=== PATIENT | female | born 1980 | race Caucasian/White ===

== ENCOUNTER 2019-06-12 15:00 | Emergency (ER) | payer MEDICAID, OTHER ==
[~2019-06-12] VITALS: Ht 162.6 cm; Wt 63.5 kg
[~2019-06-12 15:00] MED LIST: ALPR0.25 PO; AMOX-426 PO; L.RH1CAP PO; LEVE500T53 PO; TRAM50TA2 PO
[2019-06-12 15:05] VITALS: BP_SYST 143
[2019-06-12] MEDS ORDERED: ACETAMINOPHEN 500 MG TABLET PO ONE (15:30)
[2019-06-12 17:04] LABS: BARBITURATE, URINE NEGATIVE (NEG <=200)
[2019-06-12 17:05] LABS: BENZODIAZEPINE, URINE NEGATIVE (NEG <=150); CANNABINOID, URINE POSITIVE (NEG <=50); COCAINE, URINE NEGATIVE (NEG <=150); METHAMPHETAMINES SCREEN,URINE POSITIVE (NEG <=500); OPIATE, URINE POSITIVE (NEG <=100); PHENCYCLIDINE SCREEN,URINE NEGATIVE (NEG <=25); UR TRICYCLIC ANTIDEPRESSANTS NEGATIVE (NEG <=300); URINE AMPHETAMINE POSITIVE (NEG <=500); URINE METHADONE NEGATIVE (NEG <=200); URINE OXYCODONE SCREEN NEGATIVE (NEG <=100); URINE PROPOXYPHENE SCREEN NEGATIVE (NEG <=300)
[2019-06-12] MEDS ORDERED: BACLOFEN 10 MG TABLET PO ONE (17:15)
[2019-06-12] MEDS ORDERED: HYDROcodone/ACETAMIN 5-325 MG TAB (NORCO/ VICODIN) PO ONE (17:15)
[2019-06-12 18:04] VITALS: BP_SYST 143
== END 2019-06-12 18:04 | disposition home or self-care (01) ==
LOC: SED 15:00
DX: S01.511A Laceration without foreign body of lip, initial encounter (principal); S16.1XXA Strain of muscle, fascia and tendon at neck level, initial encounter; S46.911A Strain of unspecified muscle, fascia and tendon at shoulder and upper arm level, right arm, initial encounter; F41.9 Anxiety disorder, unspecified; Z88.8 Allergy status to other drugs, medicaments and biological substances; Z79.899 Other long term (current) drug therapy; Y04.0XXA Assault by unarmed brawl or fight, initial encounter; Y93.89 Activity, other specified; Y92.89 Other specified places as the place of occurrence of the external cause; Y99.8 Other external cause status
CPT/HCPCS: 70450-TC; 70486-TC; 72125-TC; 73030; 80307; 81025; 99284

== ENCOUNTER 2020-07-05 01:35 | Emergency (ER) | payer OTHER ==
[~2020-07-05] VITALS: Ht 165.1 cm; Wt 68.0 kg
[2020-07-05 01:46] VITALS: BP_SYST 127
[2020-07-05 02:20] VITALS: BP_SYST 127
[2020-07-05] MEDS: levETIRAcetam 500 MG TABLET PO ONE (02:21)
[2020-07-05] MEDS: IBUPROFEN 800 MG TABLET PO ONE (02:21)
[2020-07-05] MEDS ORDERED: IBUPROFEN 800 MG TABLET ONE (02:36)
== END 2020-07-05 02:20 ==
LOC: SED 01:35
DX: N39.0 Urinary tract infection, site not specified (principal); F41.9 Anxiety disorder, unspecified; Z79.899 Other long term (current) drug therapy; Z88.8 Allergy status to other drugs, medicaments and biological substances
CPT/HCPCS: 81002; 81025; 99283